=== PATIENT | female | born 1995 | race Two or more races ===

== ENCOUNTER 2019-05-15 17:18 | Emergency (ER) | payer BC ==
[~2019-05-15] VITALS: Ht 157.5 cm; Wt 45.4 kg
--- NOTE | 2019-05-15 18:00 | NUR ---
UA and blood draw done.
[2019-05-15 18:01] LABS: BASOPHILS # (AUTO) 0.1 K/uL (0.0-8.0); BASOPHILS % (AUTO) 0.6 % (0.0-2.0); EOSINOPHILS # (AUTO) 0.4 K/uL (0.0-0.7); EOSINOPHILS % (AUTO) 4.1 % (0.0-7.0); HEMATOCRIT 38.7 % (31.2-41.9); HEMOGLOBIN 13.1 g/dL (10.9-14.3); LYMPHOCYTES # (AUTO) 2.3 K/uL (20.0-40.0); LYMPHOCYTES % (AUTO) 24.9 % (20.5-51.5); MEAN CORPUSCULAR HEMOGLOBIN 29.9 uug (24.7-32.8); MEAN CORPUSCULAR HGB CONC 34 g/dL (32.3-35.6); MEAN CORPUSCULAR VOLUME 88.1 fL (75.5-95.3); MONOCYTES # (AUTO) 0.5 K/uL (2.0-10.0); NEUTROPHILS % (AUTO) 65.4 % (38.5-71.5); PLATELET COUNT (AUTO) 271 K/uL (179-408); RED BLOOD CELL COUNT(AUTO) 4.39 MIL/uL (3.63-4.92); WHITE BLOOD COUNT (AUTO) 9.2 K/uL (3.8-11.8)
[2019-05-15 18:12] LABS: CREATININE 0.8 mg/dL (0.6-1.3); POTASSIUM 3.9 mmol/L (3.5-5.1)
--- NOTE | 2019-05-15 18:16 | NUR ---
PATIENT PLACED IN ROOM 02B. PATIENT A & O X4.
[2019-05-15 18:19] LABS: BILIRUBIN,DIRECT 0.1 mg/dL (0.0-0.2); BILIRUBIN,TOTAL 0.5 mg/dL (0.2-1.0); TOTAL PROTEIN, SERUM 8.7 g/dL (6.4-8.2)
[2019-05-15 18:20] LABS: *BILIRUBIN,URIN 1+ (NEGATIVE); *BLOOD, URINE 3+ (NEGATIVE); *CLARITY,URINE CLOUDY (CLEAR); *COLOR,URINE Brown (YELLOW); *KETONES,URINE NEGATIVE (NEGATIVE); LEUKOCYTE ESTERASE ,URINE 1+ (NEGATIVE); NITRITE, URINE POSITIVE (NEGATIVE); UGLUCOSE NEGATIVE (NEGATIVE)
[2019-05-15 18:22] LABS: *URINE HCG, QUAL NEGATIVE (NEGATIVE)
[2019-05-15 18:29] LABS: BACTERIA,URINE MANY /HPF (NONE SEEN); MUCUS,URINE MANY /LPF (0-FEW); RBC,URINE TNTC /HPF (0-3); SQUAMOUS EPITHELIAL CELL,UR MODERATE /HPF (NONE SEEN); WBC,URINE 50-80 /HPF (0-3)
[2019-05-15] MEDS ORDERED: ACETAMINOPHEN ES 500 MG TABLET PO ONE (18:30)
--- NOTE | 2019-05-15 18:30 | NUR ---
Seen and examined by
[2019-05-15] MEDS ORDERED: PHENAZOPYRIDINE HCL 100 MG TABLET PO ONE (18:45)
[2019-05-15] MEDS ORDERED: NITROFURANTOIN/NITROFURAN MAC 100 MG CAPSULE PO ONE (18:45)
[2019-05-15] MEDS ORDERED: NITROFURANTOIN/NITROFURAN MAC 100 MG CAPSULE ONE (18:50)
[2019-05-15] MEDS ORDERED: ACETAMINOPHEN ES 500 MG TABLET ONE (18:50)
[2019-05-15] MEDS ORDERED: PHENAZOPYRIDINE HCL 100 MG TABLET ONE (18:50)
--- NOTE | 2019-05-15 18:50 | NUR ---
Pt medicated for pain. Discharge instruction given to pt with prescription with good understanding. Discharged home ambulatory. Condition is stable.
[2019-05-15 19:29] VITALS: BP 110/55
== END 2019-05-15 18:50 | disposition home or self-care (01) ==
LOC: ER 17:22
DX: N30.01 Acute cystitis with hematuria (principal)
CPT/HCPCS: 36415; 83690; 84703; 85025; 87077; 87086; A4663; A9150